=== PATIENT | male | born 1995 | race Two or more races ===

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

== ENCOUNTER 2017-09-06 21:14 | Emergency (ER) | payer OTHER ==
[~2017-09-06] VITALS: Ht 188 cm; Wt 91.2 kg
[~2017-09-06 21:14] MED LIST: BACI3.5O8 OS; NAPR-683 PO
--- NOTE | 2017-09-06 21:18 | ED.ADGEN ---
Past History Past Medical History: Anxiety, Depression, Other Past Surgical History: No Surgical History, Other Smoking: Non-smoker Alcohol Use: None Drug Use: None Adult General Chief Complaint Chief Complaint "... I got this lump in my throat...".. " I get this lump feeling in my chest when I eat.. it seems to get stuck just before my stomach... I ve been the [facility].. they put me on Zantac and Carafate... but I have not been taking them like they said... HPI HPI Patient is a 22 year old male who presents with above hx and complaints GERD and dysphagia. Pt. has had GERD symptoms the past year. Rx Zantac and Carafate, but non - compliant. Pt. has not had EGD. No travel or ill contacts. Does take Ibuprofen. Pt. does eat before going to bed. Pt. does drink alcohol Pt. denies immunosuppression. Pt. denies tarry stool. Reportedly normal labs at [facility] when checked on follow up. There is a family hx of GERD,. No hx of IBS, Colitis. Review of Systems Review of Systems Constitutional: Denies fever or chills [] Eyes: Denies change in visual acuity, redness, or eye pain [] HENT: Denies nasal congestion or sore throat [] Respiratory: Denies cough or shortness of breath [] Cardiovascular: No additional information not addressed in HPI [] GI: complaints of epigastric abdominal pain, nausea, and GERD. No vomiting, bloody stools or diarrhea [] : Denies dysuria or hematuria [] Musculoskeletal: Denies back pain or joint pain [] Integument: Denies rash or skin lesions [] Neurologic: Denies headache, focal weakness or sensory changes [] Endocrine: Denies polyuria or polydipsia [] All other systems were reviewed and found to be within normal limits, except as documented in this note. Family History Family History GERD Current Medications Current Medications Current Medications Medications (Trade) Dose Ordered Sig/Bruna Start Time Stop Time Status Last Admin Dose Admin Famotidine (Pepcid) 20 mg 1X ONCE 09/06/17 22:15 09/06/17 22:16 DC 09/06/17 22:37 20 MG Lidocaine HCl 15 ml 1X ONCE 09/06/17 22:15 09/06/17 22:16 DC 09/06/17 22:38 15 ML Magnesium Hydroxide (Milk Of Magnesia) 2,400 mg 1X ONCE 09/06/17 22:15 09/06/17 22:16 DC 09/06/17 22:35 2,400 MG Ondansetron HCl (Zofran Odt) 8 mg 1X ONCE 09/06/17 22:15 09/06/17 22:16 DC 09/06/17 22:35 8 MG See Nursing for home meds. Allergies Allergies Allergies Coded Allergies Type Severity Reaction Last Updated Verified No Known Drug Allergies 02/15/13 No Physical Exam Physical Exam Constitutional: Well developed, well nourished, mild distress, non-toxic appearance. [] HENT: Normocephalic, atraumatic, bilateral external ears normal, oropharynx moist, no oral exudates, nose normal. [] Eyes: PERRLA, EOMI, conjunctiva normal, no discharge. [] Neck: Normal range of motion, no tenderness, supple, no stridor. [] Cardiovascular:Heart rate regular rhythm, no murmur [] Lungs & Thorax: Bilateral breath sounds clear to auscultation [] Abdomen: Bowel sounds normal, soft, epi gastric tenderness, no masses, no pulsatile masses. [] Rectal no gross blood. Skin: Warm, dry, no erythema, no rash. [] Back: No tenderness, no CVA tenderness. [] Extremities: No tenderness, no cyanosis, no clubbing, ROM intact, no edema. [] Neurologic: Alert and oriented X 3, normal motor function, normal sensory function, no focal deficits noted. [] Psychologic: Affect anxious, judgement normal, mood normal. [] Current Patient Data Vital Signs Vital Signs Date Time Temp Pulse Resp B/P (MAP) Pulse Ox O2 Delivery O2 Flow Rate FiO2 09/06/17 22:40 76 16 142/85 (104) 98 Room Air Lab Results Laboratory Tests Test 09/06/17 21:40 Stool Occult Blood Negative (NEG) EKG EKG [] Radiology/Procedures Radiology/Procedures [] Course & Med Decision Making Course & Med Decision Making Pertinent Labs and Imaging studies reviewed. (See chart for details). Clear fluid diet only x 48 hrs. No solids or milk products. Must allow bowel rest. Take Zantac and Carafate as directed. Must follow up and schedule GI apt. for EGD. No eating before bed. No smoking or alcohol use. No caffeine products. Sleep with head elevated. Must follow up. Return if any concerns. No NSAIDs . May take Tylenol for pain. [] Final Impression Final Impression 1. GERD 2. Gastritis[] 3. Abdomen Pain Dragon Disclaimer Dragon Disclaimer This electronic medical record was generated, in whole or in part, using a voice recognition dictation system. JOSTIN PANCHAL MD Sep 06, 2017 21:18
[2017-09-06 22:12] LABS: FECAL OB PT NEGATIVE (NEG)
[2017-09-06] MEDS ORDERED: MAGNESIUM HYDROXIDE 2,400 MG/30 ML ORAL.SUSP. PO ONE (22:15)
[2017-09-06] MEDS ORDERED: FAMOTIDINE 20 MG TABLET PO ONE (22:15)
[2017-09-06] MEDS ORDERED: ONDANSETRON ODT 4 MG TAB.RAPDIS PO ONE (22:15)
[2017-09-06] MEDS ORDERED: LIDOCAINE 2% VISCOUS 15 ML SOLUTION. SWSW ONE (22:15)
[2017-09-06 22:40] VITALS: BP 142/85
== END 2017-09-06 22:42 | disposition home or self-care (01) ==
LOC: ER 21:14
DX: K21.9 Gastro-esophageal reflux disease without esophagitis (principal); K29.70 Gastritis, unspecified, without bleeding
CPT/HCPCS: 82274; 99284; Q0162